=== PATIENT | female | born 1990 | race Caucasian/White ===

== ENCOUNTER → 2022-07-26 | Outpatient (REF) | payer OTHER | LOC: M SFHCWAGY 13:11 | PROVIDERS: ATTEND Specialist | DX: Z34.83 Encounter for supervision of other normal pregnancy, third trimester (principal) ==

== ENCOUNTER 2022-08-23 09:45 | Inpatient (IN) | payer OTHER ==
[2022-08-23] VITALS (15 sets, daily range): BP systolic 116–143; BP diastolic 61–86
[~2022-08-23] VITALS: Ht 147.3 cm; Wt 67.5 kg
[2022-08-23] MEDS ORDERED: PENICILLIN G POTASSIUM 5 MU IV 5 MU in D5W MINI-BAG PLUS 100 ML IV STA (10:31)
[2022-08-23] MEDS ORDERED: PRENTAB9 PO (10:33)
[2022-08-23] MEDS ORDERED: CARBOPROST TROMETHAMINE 250 MCG/ML AMP IM PRN (10:35)
[2022-08-23] MEDS ORDERED: LIDOCAINE 1% MDV 20ML VIAL INFIL PRN (10:35)
[2022-08-23] MEDS ORDERED: BUTORPHANOL 2 MG/ML 1ML VIAL IV ONE (10:35)
[2022-08-23] MEDS ORDERED: HOME MED LIST COMPLETE! XX SCH (10:35)
[2022-08-23] MEDS ORDERED: OXYTOCIN DRIP 30 UNITS in IV 1 EA IV PRN ×4 (10:35)
[2022-08-23] MEDS ORDERED: PROMETHAZINE 25MG/ML 1ML VIAL IV ONE (10:35)
[2022-08-23] MEDS ORDERED: OXYTOCIN INJ 10UNITS/ML 1ML VIAL IM PRN (10:35)
[2022-08-23] MEDS ORDERED: METHYLERGONOVINE MALEATE 0.2 MG/ML VIAL IM PRN (10:35)
[2022-08-23] MEDS ORDERED: TRANEXAMIC ACID INJection 1,000 MG in NS 100 ML IV PRN (10:35)
[2022-08-23 11:10] LABS: HEMATOCRIT 41.1 % (36.0-47.0); HEMOGLOBIN 13.5 g/dl (12.0-15.5); MEAN CORPUSCULAR HEMOGLOBIN 29.7 pg (27.0-33.0); MEAN CORPUSCULAR HGB CONC 32.8 g/dl (32.0-36.5); MEAN CORPUSCULAR VOLUME 90.3 fl (80.0-96.0); PLATELET COUNT, AUTOMATED 166 10^3/uL (150-450); RED BLOOD COUNT 4.55 10^6/uL (4.00-5.40); WHITE BLOOD COUNT 7.9 10^3/uL (4.0-10.0)
[2022-08-23] MEDS: PEN G POT 3,000,000 UNIT/50 ML 3,000,000 UNIT in IV 1 EA IV SCH ×3 (14:51→22:58)
[2022-08-23] MEDS ORDERED: OXYTOCIN DRIP 30 UNITS in IV 1 EA IV SCH (18:30)
[2022-08-24] VITALS (13 sets, daily range): BP systolic 97–129; BP diastolic 67–87
[2022-08-24] MEDS ORDERED: LIDOCAINE 1% MDV 20ML VIAL As Ordered ONE (00:19)
[2022-08-24] MEDS ORDERED: PROMETHAZINE 25MG/ML 1ML VIAL IV ONE (01:22)
[2022-08-24] MEDS ORDERED: PERCOCET 5MG/325MG TAB As Ordered ONE (02:20)
[2022-08-24] MEDS ORDERED: IBUPROFEN 800 MG TAB PO SCH ×2 (03:00→06:05)
[2022-08-24] MEDS ORDERED: ACETAMINOPHEN 500 MG TAB PO PRN (04:15)
[2022-08-24] MEDS ORDERED: RHOGAM 300MCG (1500IU) INJ IM SCH (04:15)
[2022-08-24] MEDS ORDERED: METHYLERGONOVINE MALEATE 0.2 MG TAB PO PRN (04:15)
[2022-08-24] MEDS ORDERED: DOCUSATE SODIUM 100MG CAPSULE PO PRN (04:15)
[2022-08-24] MEDS ORDERED: MEASLES,MUMPS,RUBELLA VACCINE INJ (MMR-II) SQ SCH (04:15)
[2022-08-24] MEDS ORDERED: MOM 30ML SUSPENSION UDC PO PRN (04:15)
[2022-08-24] MEDS ORDERED: ACETAMINOPHEN TAB 650MG DOSE (2X325MG) PO PRN (04:15)
[2022-08-24] MEDS ORDERED: PERCOCET 5MG/325MG TAB PO PRN (04:20)
[2022-08-24] MEDS ORDERED: LIDOCAINE 1% MDV 20ML VIAL IM ONE (04:50)
[2022-08-24] MEDS ORDERED: IBUPROFEN 800 MG TAB As Ordered ONE (05:40)
[2022-08-24] MEDS ORDERED: ANUSOL HC CREAM 30GM As Ordered ONE (05:41)
[2022-08-24] MEDS: ANUSOL HC CREAM 30GM TOP SCH ×5 (05:47→21:47)
[2022-08-24] MEDS: PRENATAL VITAMINS CHEWABLE TABLET PO SCH (08:01)
[2022-08-24 08:34] LABS: HEMATOCRIT 30.4 % (36.0-47.0); MEAN CORPUSCULAR HEMOGLOBIN 30.1 pg (27.0-33.0); MEAN CORPUSCULAR HGB CONC 32.2 g/dl (32.0-36.5); MEAN CORPUSCULAR VOLUME 93.3 fl (80.0-96.0); PLATELET COUNT, AUTOMATED 131 10^3/uL (150-450); RED BLOOD COUNT 3.26 10^6/uL (4.00-5.40); WHITE BLOOD COUNT 20.9 10^3/uL (4.0-10.0)
[2022-08-24 08:39] LABS: HEMOGLOBIN 9.8 g/dl (12.0-15.5)
[2022-08-24] MEDS: IBUPROFEN 800 MG TAB PO SCH ×2 (14:35→21:50)
[2022-08-25] MEDS: ANUSOL HC CREAM 30GM TOP SCH ×6 (01:11→22:00)
[2022-08-25] MEDS: IBUPROFEN 800 MG TAB PO SCH ×3 (05:34→22:01)
[2022-08-25 06:00] VITALS: BP 88/49
[2022-08-25] MEDS: PRENATAL VITAMINS CHEWABLE TABLET PO SCH (08:10)
[2022-08-25 08:11] VITALS: BP 104/58
[2022-08-25 18:00] VITALS: BP 105/53
[2022-08-26] MEDS: ANUSOL HC CREAM 30GM TOP SCH ×2 (02:00→06:00)
[2022-08-26 06:00] VITALS: BP 105/56
[2022-08-26] MEDS: IBUPROFEN 800 MG TAB PO SCH (06:00)
[2022-08-26] MEDS: PRENATAL VITAMINS CHEWABLE TABLET PO SCH (08:53)
[2022-08-26] MEDS ORDERED: ACET-683 PO (10:53)
[2022-08-26] MEDS ORDERED: IBUP80TA PO (10:53)
== END 2022-08-26 14:55 | disposition home or self-care (01) | DRG 807 ==
LOC: M LDO 09:45 → M LDI 10:39 → M OBS 08-24 03:04
PROVIDERS: ADMIT Advanced Practice Midwife; ATTEND Advanced Practice Midwife
PROC: 10D17Z9 Manual Extraction of Products of Conception, Retained, Via Natural or Artificial Opening (ICD-10-PCS; principal; 2022-08-24)
PROC: 0KQM0ZZ Repair Perineum Muscle, Open Approach (ICD-10-PCS; 2022-08-24)
PROC: 10E0XZZ Delivery of Products of Conception, External Approach (ICD-10-PCS; 2022-08-24)
DX: O99.824 Streptococcus B carrier state complicating childbirth (principal); Z37.0 Single live birth; Z3A.40 40 weeks gestation of pregnancy; O70.1 Second degree perineal laceration during delivery; O73.0 Retained placenta without hemorrhage